=== PATIENT | female | born 2000 | race Caucasian/White ===

== ENCOUNTER 2018-07-27 01:18 | Emergency (ER) | payer OTHER ==
[~2018-07-27] VITALS: Ht 172.7 cm; Wt 63.6 kg
[2018-07-27 01:28] VITALS: TEMP 98.2
[2018-07-27 02:02] LABS: COLLECTION METHOD CLEAN CATCH
[2018-07-27 02:22] LABS: BUDDING YEAST Present /hpf; PH 8 (5-8); SQUAMOUS EPITHELIAL 0-2 /hpf; URINE APPEARANCE Hazy; URINE BACTERIA Rare /hpf; URINE BILIRUBIN Negative (NEGATIVE); URINE BLOOD 2+ (NEGATIVE); URINE COLOR Yellow; URINE GLUCOSE Negative (NEGATIVE); URINE KETONE Negative (NEGATIVE); URINE LEUKOCYTE ESTERASE 2+ (NEGATIVE); URINE NITRATE Negative (NEGATIVE); URINE PROTEIN(semi-quant) 2+ (NEGATIVE); URINE RBC 20-50 /hpf; URINE UROBILINOGEN Negative (NEGATIVE)
[2018-07-27] MEDS ORDERED: CEFTIN500 MG PO (02:27)
[2018-07-27] MEDS ORDERED: ZOFRAN ODT4 MG PO (02:56)
[2018-07-27 03:12] VITALS: BP 120/80; PULSE 101
== END 2018-07-27 03:40 | disposition home or self-care (01) ==
LOC: COL.ER 01:18
PROVIDERS: Nurse Practitioner
DX: N39.0 Urinary tract infection, site not specified (principal)
CPT/HCPCS: J0696

== ENCOUNTER 2023-10-07 19:47 | Emergency (ER) | payer SELFPAY ==
[~2023-10-07] VITALS: Ht 172.7 cm; Wt 75.0 kg
[~2023-10-07 19:47] MED LIST: CEFTIN500 MG PO; ZOFRAN ODT4 MG PO
[2023-10-07 20:06] VITALS: TEMP 98.8
[2023-10-07] MEDS ORDERED: Acetaminophen Oral Susp 325 MG/10.15 ML UD PO ONE (21:45)
[2023-10-07] MEDS ORDERED: ZOFRAN ODT4 MG PO (23:07)
[2023-10-07 23:27] VITALS: BP 117/76; PULSE 90
== END 2023-10-07 23:28 | disposition home or self-care (01) ==
LOC: COL.ER 19:47
DX: S06.0X0A Concussion without loss of consciousness, initial encounter (principal); G93.5 Compression of brain; M54.2 Cervicalgia; V49.40XA Driver injured in collision with unspecified motor vehicles in traffic accident, initial encounter; Y92.410 Unspecified street and highway as the place of occurrence of the external cause